=== PATIENT | female | born 1955 | race Caucasian/White ===

== ENCOUNTER 2020-04-17 05:44 | Day surgery (SDC) | payer BC ==
[~2020-04-17] VITALS: Ht 182.9 cm; Wt 96.2 kg
--- NOTE | ~2020-04-17 | OP ---
PATIENT NAME: BHAVANI CARTAGENA MEDICAL RECORD: [id number] :57 LOCATION:D.OPS ADMISSION DATE: SURGEON: KRISTEN KHAN DPM DATE OF OPERATION: 04/17/2020 PREOPERATIVE DIAGNOSES: 1. Plantar plate rupture, right second metatarsal phalangeal joint. 2. Hammertoe, right second, third and fourth digits. POSTOPERATIVE DIAGNOSES: 1. Plantar plate rupture, right second metatarsal phalangeal joint. 2. Hammertoe, right second, third and fourth digits. PROCEDURES: 1. Right second metatarsal Evin osteotomy. 2. Right second MPJ plantar plate repair. 3. Right second PIPJ fusion. 4. Right third flexor tendon tenotomy. 5. Right fourth flexor tenotomy. ANESTHESIA: General with local infiltrate utilizing lidocaine and Marcaine plain around the second, third, and fourth rays, 20 mL total. HEMOSTASIS: Right thigh tourniquet at 350 mmHg. OPERATIVE DETAILS: The patient was taken to the OR and placed on the operating table in the supine position. This was followed by induction of general anesthesia and infiltration of local anesthetic. The right extremity was then prepped and draped in the usual aseptic technique, followed by exsanguination and inflation of the tourniquet. PROCEDURE #1: Evin osteotomy, right second metatarsal. A 15 blade was used to create a curvilinear incision from the dorsal aspect of the second metatarsal distally across the second MPJ and dorsal to the PIPJ of the second digit. The incision was deepened down through subcutaneous tissue to the extensor longus tendon, which was transected in a Z fashion. The second MPJ was then delivered. A capsulotomy was performed and the head of the second metatarsal was delivered. McGlamry scoop elevator was used to free the plantar structures. At this time, a sagittal saw was used to create the Evin osteotomy from dorsal distal to plantar proximal through the distal shaft of the second met. Once the osteotomy was complete, the capital fragment was translocated posteriorly and temporarily fixated with a K-wire. A second K-wire was placed in the shaft of the proximal phalanx of the second digit. PROCEDURE #2: Plantar plate repair, right second MPJ. A wire distractor was placed over the K-wires. The joint was distracted and there was noted to be significant rupture of the central aspect of the plantar plate. The flexor tendon, both the brevis and longus were visualized immediately and the floor of the joint space, indicating that there was total rupture. There was medial and lateral attachment of the plantar plate, somewhat attached. The rupture was completed. At this time, I did utilize pigtail suture passers to bring the plantar plate together. Then, a Scorpion suture passer was used to grab the plantar plate. Two drill holes were made in the proximal phalanx of the second digit. The FiberWire was placed up through the drill holes. The wire distractor was removed. The wires were removed. The Evin osteotomy was then OPERATIVE REPORT [id number] BAHVANI CARTAGENA fixated in the proper position utilizing 2 pop-off screws and with the toe digit held in proper position, surgeon's knots were used with the FiberWire to repair and gather the plantar plate. Upon finishing of the repair, there was noted to be excellent alignment of the second MPJ. PROCEDURE #3: Right second PIPJ fusion. Utilizing the incision as described in #1, the extensor longus tendon was freed from the dorsal aspect of the head of the proximal phalanx and the base of the middle phalanx. A sagittal saw was used to resect the head of the proximal phalanx and base of the middle phalanx. A drill hole was made in the proximal phalanx and the middle phalanx. A HammerTube graft was placed in the proximal phalanx first and then the middle phalanx was placed on top of the graft, noting excellent alignment and abutment of the bony ends. The wound was flushed. A 2-0 Vicryl was used to close the capsule of the second MPJ, followed by reapproximation and repair of the extensor longus tendon with 4-0 Rapide. The subcutaneous tissue was reapproximated with 4-0 Rapide and the skin was closed with 4-0 Rapide in a subcuticular technique. PROCEDURE #4: Right third flexor tenotomy. A 15 blade was used to create a small stab incision at the base of the third toe where it meets the foot. The tendon was palpated and transected allowing extension of the third digit. 4-0 Rapide was used in a simple interrupted technique to close the wound. PROCEDURE #5: Right fourth flexor tenotomy. Procedure was performed as described in #4 without variation and/or complication. Dermabond were used to close on top of all the wounds. Adaptic, 4 x 4 and conform were used to dress the wound, followed by application of modified Bone compression dressing. Tourniquet was deflated. POSTOPERATIVE DETAILS: The patient tolerated the procedure well and left the OR with vital signs stable and vascular status at preoperative levels. The patient was transported to recovery per Anesthesia in stable condition. TRANSINT:[id number] Voice Confirmation ID: [id number] DOCUMENT ID: [id number] KRISTEN KHAN DPM CC: [id number] DICTATION DATE: 04/17/20920 DEVELOPMENT MANAGER: 04/17/20 1002 [facility] [address] [place] [address]
[~2020-04-17 05:44] MED LIST: CALCIUM 500 +1 EAC3 PO; CENTRUM SILVER1 EAC3 PO; FLUTICASONE PRO16 GM NASAL; GLUCOPHAGE1000 MG PO; PROBIOTIC BLEN1 EACH; PROMETRIUM100 MG PO; SYNTHROID175 MCG PO; VALTREX500 MG PO; VITAMIN D-40010 MCG PO; ZOCOR10 MG PO
[2020-04-17 06:27] LABS: BASOPHILS 0.3 % (0-2); EOSINOPHILS 1.6 % (0-7); HEMATOCRIT 41.5 % (36.0-48.0); HEMOGLOBIN 13.9 g/dL (12-16); IMMATURE GRANULOCYTES 0.2 % (0-5); LYMPHOCYTE ABS# 2.19 10x3/uL (1.18-3.74); LYMPHOCYTES 34.8 % (15-50); MCH 30.5 pg (26.0-34.0); MCHC 33.5 g/dL (31.0-37.0); MEAN PLATELET VOLUME 9.1 fL (7.4-10.4); MONOCYTES 9.7 % (2-11); NEUTROPHIL ABS# 3.37 10x3/uL (1.56-6.13); NEUTROPHILS 53.4 % (40-80); PLATELET COUNT 223 10x3/uL (130-400); RBC 4.56 10x6/uL (4.00-5.40); RDW 12.7 % (11.5-14.5); WBC 6.3 10x3/uL (4.8-10.8)
[2020-04-17 06:30] LABS: CALC OSMOLALITY 272 mosm/kg (275-300); CALCIUM 8.6 mg/dL (8.5-10.1); CARBON DIOXIDE 26.3 mmol/L (21.0-32.0); CHLORIDE - SERUM 104 mmol/L (98-107); CREATININE - SERUM 0.8 mg/dL (0.6-1.3); GLUCOSE 101 mg/dL (74-106); POTASSIUM - SERUM 4.2 mmol/L (3.5-5.1); SODIUM 136 mmol/L (136-145); UREA NITROGEN 15 mg/dL (7-18); eGFR NON AFRICAN AMERICAN 76 mL/min (90-120)
[2020-04-17 07:13] VITALS: BP 136/76; Ht 182.9 cm; Wt 96.2 kg
--- NOTE | 2020-04-17 14:23 | NUR ---
1047 IV DC'D. CATHETER TIP INTACT. NO BLEEDING AT SITE. BANDAID APPLIED. DR KHAN AT BEDSIDE TO EVALUATE PT'S RIGHT THIGH AREA. PT HAS BEEN C/O TENDERNESS. NO SWELLING OR REDNESS NOTED. DR KHAN TOLD PT THAT HER THIGH WILL BE BRUISED AND TENDER FOR A FEW DAYS. 1120 DISCHARGE INSTRUCTIONS REVIEWED EARLIER WITH PT WHO VOICES UNDERSTANDING OF INSTRUCTIONS.
== END 2020-04-17 11:07 | disposition home or self-care (01) ==
LOC: D.OPS 05:44
PROVIDERS: Anesthesiology; ATTEND Podiatrist
DX: M20.41 Other hammer toe(s) (acquired), right foot (principal); S93.529A Sprain of metatarsophalangeal joint of unspecified toe(s), initial encounter; X58.XXXA Exposure to other specified factors, initial encounter